=== PATIENT | male | born 1975 | race American Indian/Alaskan Native ===

== ENCOUNTER 2017-07-22 23:44 | Emergency (ER) | payer SELFPAY ==
[2017-07-23] MEDS ORDERED: CATAPRES PO ONE (01:58)
[2017-07-23 02:14] LABS: Basophils # (Auto) 0.1 K/mm3 (0.0-0.1); Basophils % (Auto) 0.6 % (0.0-1.8); Eosinophils # (Auto) 0.3 K/mm3 (0.0-0.4); Eosinophils % (Auto) 3.7 % (0.0-4.3); Hematocrit 40.1 % (35.5-45.6); Hemoglobin 12.6 gm/dl (11.8-15.2); Lymphocytes # (Auto) 2.6 K/mm3 (1.2-5.4); Lymphocytes % (Auto) 31.3 % (13.4-35.0); Mean Corpuscular HGB Conc 31 % (32-34); Mean Corpuscular Volume 71 fl (84-94); Monocytes # (Auto) 0.6 K/mm3 (0.0-0.8); Monocytes % (Auto) 6.6 % (0.0-7.3); Platelet Count 261 K/mm3 (140-440); Red Blood Count 5.65 M/mm3 (3.65-5.03); Red Cell Distribution Width 14.7 % (13.2-15.2)
[2017-07-23 02:30] LABS: Mean Corpuscular Hemoglobin 22 pg (28-32)
[2017-07-23 02:54] LABS: BUN/Creatinine Ratio 10; Blood Urea Nitrogen 8 mg/dL (9-20); Calcium 8.9 mg/dL (8.4-10.2); Hemolysis Index 8
--- NOTE | 2017-07-23 03:16 | Cat Scan Report ---
FINAL REPORT PROCEDURE: CT HEAD/BRAIN WO CON TECHNIQUE: Computerized tomography of the head was performed without contrast material. HISTORY: headache COMPARISON: No prior studies are available for comparison. FINDINGS: Skull and scalp: Normal. Paranasal sinuses: Normal. Ventricles and subarachnoid spaces: Normal. Cerebrum: No evidence of hemorrhage, acute infarction or mass . Cerebellum and brainstem: No evidence of hemorrhage, acute infarction or mass. Vasculature: Normal. Comments: None. IMPRESSION: Normal Examination
--- NOTE | 2017-07-23 10:31 | Emergency Department Report ---
ED General Adult HPI - General Chief complaint: High BP Stated complaint: BED BUGS, HTN Source: patient Mode of arrival: Ambulatory Limitations: No Limitations - History of Present Illness Initial comments: Mr. Martin is a 42-year-old male with history of hypertension who presents with headache and blurry vision. He stated that the symptoms are brief lasting seconds to minutes. mild frontal throbbing headache. No paresthesias. No paralysis. No chest pain. No hematuria. No abdominal pain. No current headache. He stated that he was concerned about his blood pressure. He takes Maxide. However he is noncompliant with medications. He does not like taking medications. -: Sudden, minutes(s) (few) Location: head - Related Data Home Medications Medication Instructions Recorded Confirmed Last Taken Triamcinolone 0.025% 1 tab PO DAILY 07/23/17 07/23/17 Unknown Previous Rx's Medication Instructions Recorded Last Taken Type Triamter/Hctz 37.5-25 mg 1 tab PO QDAY 30 Days #30 tablet 07/23/17 Unknown Rx [Maxzide-25] metFORMIN [Glucophage] 500 mg PO BID 30 Days #60 tablet 07/23/17 Unknown Rx Allergies Allergy/AdvReac Type Severity Reaction Status Date / Time shellfish derived Allergy Rash Verified 07/23/17 01:53 ED Review of Systems ROS: Stated complaint: BED BUGS, HTN Other details as noted in HPI Comment: All other systems reviewed and negative Constitutional: denies: chills ENT: denies: throat pain Respiratory: denies: cough Cardiovascular: denies: chest pain ED Past Medical Hx - Past Medical History Hx Hypertension: Yes Hx Diabetes: Yes Hx Asthma: Yes - Surgical History Past Surgical History?: No - Social History Smoking Status: Never Smoker Substance Use Type: None - Medications Home Medications: Home Medications Medication Instructions Recorded Confirmed Last Taken Type Triamcinolone 0.025% 1 tab PO DAILY 07/23/17 07/23/17 Unknown History Triamter/Hctz 37.5-25 mg 1 tab PO QDAY 30 Days #30 tablet 07/23/17 Unknown Rx [Maxzide-25] metFORMIN [Glucophage] 500 mg PO BID 30 Days #60 tablet 07/23/17 Unknown Rx ED Physical Exam - General Limitations: No Limitations General appearance: alert, in no apparent distress - Head Head exam: Present: atraumatic, normocephalic - Eye Eye exam: Present: normal appearance - ENT ENT exam: Present: mucous membranes moist - Neck Neck exam: Present: normal inspection. Absent: meningismus - Respiratory Respiratory exam: Present: normal lung sounds bilaterally. Absent: respiratory distress, wheezes, rales, rhonchi - Cardiovascular Cardiovascular Exam: Present: regular rate, normal rhythm, normal heart sounds. Absent: systolic murmur, diastolic murmur, rubs, gallop - GI/Abdominal GI/Abdominal exam: Present: soft, normal bowel sounds. Absent: distended, tenderness, guarding, rebound - Rectal Rectal exam: Present: deferred - Extremities Exam Extremities exam: Present: normal inspection - Back Exam Back exam: Present: normal inspection - Neurological Exam Neurological exam: Present: alert, oriented X3 - Psychiatric Psychiatric exam: Present: normal affect, normal mood - Skin Skin exam: Present: warm, dry, intact, normal color. Absent: rash ED Course Vital Signs 07/23/17 07/23/17 01:42 02:09 Temperature 98.1 F Pulse Rate 67 67 Respiratory 16 Rate Blood Pressure 183/106 183/106 O2 Sat by Pulse 100 Oximetry ED Medical Decision Making - Lab Data Result diagrams: 07/23/17 02:02 07/23/17 02:02 Laboratory Results - last 24 hr 07/23/17 07/23/17 02:02 02:02 WBC 8.4 RBC 5.65 H Hgb 12.6 Hct 40.1 MCV 71 L MCH 22 L MCHC 31 L RDW 14.7 Plt Count 261 Lymph % (Auto) 31.3 [place] % (Auto) 6.6 Eos % (Auto) 3.7 Baso % (Auto) 0.6 Lymph # 2.6 [place] # 0.6 Eos # 0.3 Baso # 0.1 Seg Neutrophils % 57.8 Seg Neutrophils # 4.9 Sodium 139 Potassium 4.3 Chloride 100.0 Carbon Dioxide 26 Anion Gap 17 BUN 8 L Creatinine 0.8 Estimated GFR > 60 BUN/Creatinine Ratio 10 Glucose 175 H Calcium 8.9 Vital Signs - 24 hr 07/23/17 07/23/17 01:42 02:09 Temperature 98.1 F Pulse Rate 67 67 Respiratory 16 Rate Blood Pressure 183/106 183/106 O2 Sat by Pulse 100 Oximetry - Medical Decision Making Mr. Gray presents with mild headache and transient blurry vision. No indication of TIA or CVA. Dx: Hypertensive urgency, patient given prescription for Maxide and metformin. Patient also given hypertension instructions. I've referred him to outpatient physician gambling monitor. Critical care attestation.: If time is entered above; I have spent that time in minutes in the direct care of this critically ill patient, excluding procedure time. ED Disposition Clinical Impression: Hypertensive urgency Disposition: DC-01 TO HOME OR SELFCARE Is pt being admited?: No Does the pt Need Aspirin: No Condition: Fair Instructions: Chronic Hypertension (ED), Hypertension (ED) Prescriptions: metFORMIN [Glucophage] 500 mg PO BID 30 Days #60 tablet Triamter/Hctz 37.5-25 mg [Maxzide-25] 1 tab PO QDAY 30 Days #30 tablet Referrals: KAYLIN PIEDRA MD [Primary Care Provider] - 3-5 Days
[2017-07-23 11:04] VITALS: BP 134/93
== END 2017-07-23 11:05 | disposition home or self-care (01) ==
LOC: ED 23:44
DX: I16.0 Hypertensive urgency (principal); E11.9 Type 2 diabetes mellitus without complications; I10 Essential (primary) hypertension; J45.909 Unspecified asthma, uncomplicated; Z91.013 Allergy to seafood; Z79.84 Long term (current) use of oral hypoglycemic drugs
CPT/HCPCS: 36415; 70450; 80048; 85025; 93005; 93010; 99284

== ENCOUNTER 2019-04-14 22:13 | Emergency (ER) | payer OTHER ==
[2019-04-15] MEDS ORDERED: IBUPROFEN 600 MG TAB PO ONE (02:05)
[2019-04-15] MEDS ORDERED: ACETAMINOPHEN 500 MG TAB PO ONE (02:05)
--- NOTE | 2019-04-15 02:43 | XRay Report ---
Right knee, 3 views INDICATION: Knee pain today FINDINGS: The joint space is maintained. There is no fracture or dislocation. No spurring or arthriti c change. No bone lesion or periostitis. No significant abnormality. IMPRESSION: Negative study Signer Name: Nile Kasper MD Signed: 04/15/2019 2:39 AM Workstation Name: [id number]
--- NOTE | 2019-04-15 02:44 | XRay Report ---
Lumbosacral spine, 3 views INDICATION: Back pain today FINDINGS: The vertebral body heights and disc spaces are preserved. No fracture or spondylolisthesis. No significant spurring or arthritis. No bony abnormality identified. Impression: Negative lumbar spine radiograph. Signer Name: Nile Kasper MD Signed: 04/15/2019 2:40 AM Workstation Name: [id number]
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
[2019-04-15 05:58] VITALS: BP 138/88
== END 2019-04-15 04:30 | disposition home or self-care (01) ==
LOC: ED 22:13
DX: S83.91XA Sprain of unspecified site of right knee, initial encounter (principal); M62.830 Muscle spasm of back; I10 Essential (primary) hypertension; E11.9 Type 2 diabetes mellitus without complications; J45.909 Unspecified asthma, uncomplicated; Z79.899 Other long term (current) drug therapy; Z91.013 Allergy to seafood; V89.2XXA Person injured in unspecified motor-vehicle accident, traffic, initial encounter; Y93.89 Activity, other specified; Y92.410 Unspecified street and highway as the place of occurrence of the external cause; Y99.8 Other external cause status
CPT/HCPCS: 72100